=== PATIENT | male | born 1995 | race African-American/Black ===

== ENCOUNTER 2016-06-10 08:38 | Emergency (ER) | payer SELFPAY ==
[~2016-06-10] VITALS: Ht 170.2 cm; Wt 70.0 kg
[2016-06-10 08:41] VITALS: BP 139/93; PULSE 88; RESP 15; TEMP 98.2; O2SAT 96
--- NOTE | 2016-06-10 08:55 | PD ---
HPI Chief Complaint: ENT Complaint Time Seen by Provider: 08:49 Travel History International Travel<30 days: No Contact w/Intl Traveler<30days: No Traveled to known affect area: No History of Present Illness HPI This is a 21-year-old male who presents to the emergency department with 3 days of sore throat, constant, moderate severity, worse with swallowing, keeping him up last night. He denies any associated rhinorrhea, or fever. He's had a nonproductive cough. He has a history of asthma. One of his friends recently had a bacterial throat infection. He says he hasn't been sick in years. [facility] Past Medical History Narrative Medical asthma ?: Not Social History Tobacco Use: No Allergies-Medications (Allergen,Severity, Reaction): Coded Allergies: Azithromycin (Verified Allergy, Intermediate, ANXIETY, 06/10/16) Reported Meds & Prescriptions Reported Meds & Active Scripts Active No Active Prescriptions or Reported Medications Review of Systems Except as stated in HPI: all other systems reviewed are Neg Physical Exam Narrative GENERAL:Well appearing, no acute distress SKIN: Warm and dry. HEAD: Atraumatic. Normocephalic. EYES: Pupils equal and round. No injection or drainage. ENT: Moist mucous membranes. Posterior pharyngeal erythema with no exudates. NECK: Trachea midline. No cervical lymphadenopathy. CARDIOVASCULAR: Regular rate and rhythm. No murmur appreciated. RESPIRATORY: Clear to auscultation. Breath sounds equal bilaterally. GASTROINTESTINAL: Abdomen soft, non-tender, nondistended. MUSCULOSKELETAL: No obvious deformities. NEUROLOGICAL: Awake and alert. No obvious cranial nerve deficits. Moving all extremities. PSYCHIATRIC: Appropriate mood and affect; insight and judgment normal. Data Data Last Documented VS Vital Signs Date Time Temp Pulse Resp B/P Pulse Ox O2 Delivery O2 Flow Rate FiO2 06/10/16 09:13 16 06/10/16 08:41 98.2 88 139/93 96 Orders Group A Rapid Strep Screen (06/10/16 08:54) Strep Culture (Group A) (06/10/16 08:55) MDM Medical Decision Making Medical Screen Exam Complete: Yes Emergency Medical Condition: Yes Interpretation(s) Rapid strep negative Differential Diagnosis Strep pharyngitis, viral pharyngitis, seasonal allergies, postnasal drip Narrative Course This is a 21-year-old male who presents to the emergency department with sore throat that's been present for 3 days. He had a sick was diagnosed with a bacterial pharyngitis. He is otherwise nontoxic appearing and well-hydrated. Rapid strep was negative. I think patient can be discharged with a diagnosis of viral pharyngitis. Diagnosis Primary Impression: Viral pharyngitis Patient Instructions: General Instructions Additional Instructions: If you develop severe chest pain, shortness of breath, sweating, lightheadedness , dizziness or difficulty breathing return to the emergency department immediately. Followup with your primary care physician in 2-3 days if your symptoms are not resolved. Med/Other Pt SpecificInfo: Prescription(s) given Scripts Phenol (Antiseptic) (Chloraseptic)1.4 % Spr1 [place] PO Q2HR PRN (SORE THROAT) #1 BOTTLE Prov:Pallavi Moe MD 06/10/16 Naproxen 500 Mg [id number] Mg PO BID PRN (PAIN SCALE 4 TO 10) #20 TAB Prov:Pallavi Moe MD 06/10/16 Disposition: 01 DISCHARGE HOME Condition: Stable Pallavi oMe MD Jun 10, 2016 08:55
[2016-06-10] MEDS ORDERED: CHLO1.4S2 PO (09:30)
[2016-06-10] MEDS ORDERED: NAPR500T PO (09:30)
== END 2016-06-10 09:45 | disposition home or self-care (01) ==
LOC: PHED 08:38
DX: J02.8 Acute pharyngitis due to other specified organisms (principal); J45.909 Unspecified asthma, uncomplicated
CPT/HCPCS: 87081; 87880; 99283